=== PATIENT | female | born 2000 | race Caucasian/White ===

== ENCOUNTER 2018-04-30 21:26 | Emergency (ER) | payer SELFPAY ==
[~2018-04-30] VITALS: Ht 170.2 cm; Wt 74.1 kg
[2018-04-30 21:37] VITALS: BP 128/74
== END 2018-04-30 22:02 | disposition left against medical advice (07) ==
LOC: EMS 21:27
DX: R41.82 Altered mental status, unspecified (principal); Z53.21 Procedure and treatment not carried out due to patient leaving prior to being seen by health care provider